=== PATIENT | female | born 1950 | race Caucasian/White ===

== ENCOUNTER → 2020-05-22 19:31 | Outpatient (ROUT) | payer MEDICARE, BC, SELFPAY ==
[2020-05-22 20:24] LABS: Aspartate Aminotransferase 29 IU/L (14-36); BUN Creatinine Ratio 48.1 (6-22); Blood Urea Nitrogen 25 mg/dL (7-17); Calcium 9.7 mg/dL (8.4-10.2); Carbon Dioxide 29 mmol/L (22-32); Chloride 105 mmol/L (98-107); Cholesterol 155 mg/dL (140-199); Estimated Glomerular Filt Rate > 60.0 mL/min (>60); Glucose 94 mg/dL (80-110); HDL Cholesterol 65 mg/dL (40-60); HEMOLYSIS < 15 (0-50); LDL Cholesterol Calculated 70 mg/dL (<100); Potassium 3.8 mmol/L (3.4-5.1); Sodium 137 mmol/L (137-145); Triglycerides 102 mg/dL (35-150)
== END ==
PROVIDERS: Visit Provider Internal Medicine
DX: I10 Essential (primary) hypertension (principal); E78.2 Mixed hyperlipidemia; E55.9 Vitamin D deficiency, unspecified
CPT/HCPCS: 80048; 80061; 82306; 84450

== ENCOUNTER → 2021-08-08 14:14 | Outpatient (CLI) | payer MEDICARE, BC, SELFPAY ==
--- NOTE | 2021-08-08 14:21 | DI.RAD.S_ITS ---
PROCEDURE: XR DEXA AXIAL SKELETON INDICATIONS: OSTEOPOROSIS COMPARISON: None. FINDINGS: This blank DEXA report has been sent in error by the PACS system. The correct and complete report will be forthcoming in 1-2 days. Thank you for your patience and understanding. Dictated by: Susan Ferrer MD, PhD on 08/08/2021 at 17:25 Approved by: Susan Ferrer MD, PhD on 08/08/2021 at 17:25
== END ==
PROVIDERS: PCP Internal Medicine; Referring Provider Internal Medicine; Visit Provider Internal Medicine
DX: M85.851 Other specified disorders of bone density and structure, right thigh (principal); Z78.0 Asymptomatic menopausal state; Z82.62 Family history of osteoporosis
CPT/HCPCS: 77080

== ENCOUNTER → 2021-12-07 14:56 | Outpatient (CLI) | payer MEDICARE, BC, SELFPAY ==
[2021-12-07 16:17] LABS: Hematocrit 38.9 % (36-46); Hemoglobin 13.1 g/dL (12.0-16.0); Mean Corpuscular HGB Conc 33.8 % (30-36); Mean Corpuscular Hemoglobin 31.4 PG (26-34); Platelet Count 245 X10^3/uL (150-400); Red Blood Cell Count 4.18 X10^6/uL (4.0-5.2); Red Cell Distribution Width 12.3 % (11.6-14.8); White Blood Cell Count 6.1 X10^3/uL (4.5-11.0)
[2021-12-07 17:23] LABS: Alanine Aminotransferase 22 IU/L (<35); Albumin 4.2 g/dL (3.5-5.0); Albumin Globulin Ratio 1.5 (1.0-2.8); Alkaline Phosphatase 44 U/L (38-126); Aspartate Aminotransferase 28 IU/L (14-36); BUN Creatinine Ratio 37.1 (6-22); Bilirubin Total 0.4 mg/dL (0.2-1.3); Blood Urea Nitrogen 23 mg/dL (7-17); Carbon Dioxide 26 mmol/L (22-32); Chloride 107 mmol/L (98-107); Cholesterol 144 mg/dL (140-199); Estimated Glomerular Filt Rate > 60 mL/min (>60); Globulin 2.8 g/dL (1.7-4.1); Glucose 96 mg/dL (80-110); HDL Cholesterol 49 mg/dL (40-60); HEMOLYSIS < 15 (0-50); LDL Cholesterol Calculated 59 mg/dL (<100); Potassium 4.1 mmol/L (3.4-5.1); Sodium 140 mmol/L (137-145); Triglycerides 180 mg/dL (35-150)
[2021-12-07 17:40] LABS: Vitamin D 25 Hydroxy (D3) 40.8 ng/mL (30.0-100.0)
[2021-12-07 17:54] LABS: TSH w/ Reflex to FT4 1.51 uIU/mL (0.47-4.68)
== END ==
PROVIDERS: PCP Internal Medicine; Referring Provider Internal Medicine; Visit Provider Internal Medicine
DX: I10 Essential (primary) hypertension (principal); E78.2 Mixed hyperlipidemia; M85.89 Other specified disorders of bone density and structure, multiple sites
CPT/HCPCS: 36415; 80053; 80061; 82306; 84443; 85027

== ENCOUNTER → 2022-05-02 09:21 | Outpatient (CLI) | payer MEDICARE, BC, SELFPAY ==
[2022-05-02 11:03] LABS: COVID19 -Nasal RAPID Negative (Negative)
== END ==
PROVIDERS: PCP Internal Medicine; Visit Provider Surgery
DX: Z20.822 Contact with and (suspected) exposure to COVID-19 (principal); Z01.812 Encounter for preprocedural laboratory examination
CPT/HCPCS: 87635; C9803

== ENCOUNTER 2022-05-03 06:29 | Day surgery (SDC) | payer MEDICARE, BC, SELFPAY ==
[2022-05-03 07:22] VITALS: BP 142/71; PULSE 59; RESP 16; TEMP 36.1; O2SAT 99; BMI 22.4
[2022-05-03] MEDS: LACTATED RINGERS 1,000 ML 42 ML IV (07:30)
--- NOTE | 2022-05-03 07:47 | PM.HP.1 ---
History of Present Illness History of Present Illness Chief complaint: SCREENING COLONOSCOPY Narrative: Ms. Ward presents today for screening colonoscopy she has had a colonoscopy 10 years ago and other than hemorrhoids there were no polyps seen and she was advised to follow up in 10 years. She has no family history of colon cancer. She endorses no major change in bowel habits. She has had some looser stools which she attributes to increasing her vegetable intake in her diet. And she often has some spots of blood on her toilet paper when she wipes but she has 3 known hemorrhoids that she has had for ever and always dealt with otherwise she has had no change from her normal and no symptoms which are alarming. Patient History Medical History Advanced directives, counseling/discussion Cat allergies Chicken pox Colon cancer screening Essential hypertension Hemorrhoid (~1986) Measles Mixed hyperlipidemia Mumps (~1963) Osteopenia (~2014) Wrist fracture (~2017) Surgical History Anesthesia History of tubal ligation (~05/1992) History of vaginal delivery Family & Social History Family History Father Sudden Mother Cancer Congestive heart failure Brother HIV (human immunodeficiency virus infection) Sister Glaucoma Osteoporosis Osteopenia Mental health problem Disease of spine Alcoholism Grandfather Cancer Grandmother Congestive heart failure Social History: household members spouse Tobacco & Substance use: Smoking Status Never smoker alcohol intake frequency a few times a week Substance Use Type marijuana Meds Home Medications and Allergies Home Medications Medication Instructions Recorded Confirmed Type alendronate 70 mg tablet 70 mg PO QWEEK #12 tabs 12/07/21 05/03/22 Rx amlodipine 2.5 mg tablet 2.5 mg PO DAILY #90 tabs 12/07/21 05/03/22 Rx atorvastatin 10 mg tablet 10 mg PO BEDTIME #90 tabs 12/07/21 05/03/22 Rx cholecalciferol (vitamin D3) 25 25 mcg PO DAILY 12/07/21 05/03/22 History mcg (1,000 unit) capsule Allergies Allergy/AdvReac Type Severity Reaction Status Date / Time cat dander Allergy Mild Sneezing Verified 05/03/22 07:15 Exam Vital Signs (past 8 hours): - 05/03/22 07:22 Temperature 97 F L Pulse Rate 59 L Respiratory Rate 16 Blood Pressure 142/71 H Pulse Oximetry 99 Oxygen Delivery Method Room Air Oxygen Flow Rate 0 Oxygen Delivery Method Room Air Oxygen Flow Rate 0 Const General: cooperative, healthy appearing and comfortable HENMT Head: normal to inspection Eyes General: appearance normal, both eyes and all related structures Neck Neck: normal visual inspection Resp Effort & Inspection: normal respiratory effort and able to speak in complete sentences Cardio Rate: regular rate Rhythm: regular rhythm GI Palpation: soft and No tender Extrem General: normal to inspection Assessment & Plan Assessment and plan (1) Colon cancer screening: Status: Acute Plan I discussed the risks benefits and alternatives to screening colonoscopy and procedural conscious sedation. Ms. Ward feels she has a full understanding and would like to proceed. She had no further questions. Time Spent With Patient Critical Care time: I spent a total of [] minutes of critical care time on this patient's care today; this time is exclusive of procedural time.
[2022-05-03] MEDS: fentaNYL 100 MCG/2 ML INJ 150 MCG IV (08:11)
[2022-05-03] MEDS: MIDAZOLAM 5 MG/5 ML VIAL IV (08:11)
--- NOTE | 2022-05-03 08:30 | PM.OP.COLON ---
Operative Date/Time/Diagnoses Date of procedure: 05/03/22 Time of procedure: 08:31 Pre-op diagnosis: Colon cancer screening Post-op diagnosis: same Procedure & Clinicians Same procedure as scheduled: Yes Indications: Screening Surgeon: Cynthia Naranjo Procedure Notes Procedure in detail: Patient was taken to the endoscopy suite placed in left lateral decubitus position 2 mg of Versed and 50mcg of fentanyl were administered initially. Patient was so wide awake at 2 minutes, and another 2mg versed and 50mcg of fentanyl were then given. Patient tolerated this well. The colonoscope was placed into the anal canal after performing a digital rectal exam and visual exam of the anus. External hemorrhoids were visualized. The scope was advanced to the cecum. At the hepatic flexure another 1 mg and of Versed and 50 mg of fentanyl were administered. And the scope was advanced into the cecum. Photograph was taken of the appendiceal orifice. The scope was then withdrawn. 13 minute withdrawl. No polyps were seen, no diverticula appreciated. Total: 5 mg versed, 150 mcg fentanyl. Sedation minutes: 32 Specimen(s): none sent Complications: none Post-procedure Recommendations: Colonoscopy in 10 years Plan for aftercare: Patient may follow-up in 10 years for colonoscopy, but she will be 81 so, only if she wishes to continue screening at that time.
[2022-05-03 08:38] VITALS: BP 101/42; PULSE 56; RESP 16; TEMP 36.3; O2SAT 98
[2022-05-03 08:43] VITALS: BP 101/42; PULSE 50; RESP 16; O2SAT 97
[2022-05-03 08:48] VITALS: BP 102/49; PULSE 52; RESP 16; TEMP 36.3; O2SAT 95
[2022-05-03 08:57] VITALS: BP 111/52; PULSE 57; RESP 16; TEMP 36.2; O2SAT 98
[2022-05-03 08:59] VITALS: BP 120/70; PULSE 51; RESP 16; TEMP 36.3; O2SAT 96
== END 2022-05-03 09:17 | disposition home or self-care (01) ==
PROVIDERS: PCP Internal Medicine; Referring Provider Surgery; Visit Provider Surgery
PROC: 0DJD8ZZ Inspection of Lower Intestinal Tract, Via Natural or Artificial Opening Endoscopic (ICD-10-PCS; CPT 45378; principal; 2022-05-03 07:45)
DX: Z12.11 Encounter for screening for malignant neoplasm of colon (principal); K64.4 Residual hemorrhoidal skin tags
CPT/HCPCS: G0121; 99152; 99153; J2250; J3010

== ENCOUNTER → 2022-09-12 14:01 | Outpatient (CLI) | payer MEDICARE, BC, SELFPAY ==
--- NOTE | 2022-09-12 14:03 | DI.MG.S_ITS ---
BILATERAL DIGITAL SCREENING MAMMOGRAM 3D/2D WITH CAD: 09/12/2022 CLINICAL: Routine screening. Family history of breast cancer. Comparison is made to exams dated: 08/08/2021 mammogram, 06/01/2020 mammogram, and 04/07/2019 mammogram - [facility]. There are scattered areas of fibroglandular density in both breasts (category b / 25%-50% glandular tissue). Current study was also evaluated with a Computer Aided Detection (CAD) system. No significant masses, calcifications, or other findings are seen in either breast. There has been no significant interval change. IMPRESSION: NEGATIVE There is no mammographic evidence of malignancy. A 1 year screening mammogram is recommended. Based on the Tyrer Cuzick model (a risk assessment model) the patient's lifetime risk is 9.8% and her 10 year risk is 7.4%. According to the ACR, ACS, and NCCN guidelines, an annual breast MRI exam along with mammogram is recommended if the patient's lifetime risk is 20% or greater. This exam was interpreted at Station ID: [id number]. NOTE: For mammograms, a report in lay terms will be sent to the patient. Approximately 15% of breast malignancies will not be visualized mammographically. In the management of a palpable breast mass, a negative mammogram must not discourage biopsy of a clinically suspicious lesion. Electronically Signed By: Juan David harely/roland:09/12/2022 16:05:51 letter sent: Normal Exam ACR BI-RADS Category 1: Negative [id number]
== END ==
PROVIDERS: PCP Internal Medicine; Referring Provider Internal Medicine; Visit Provider Internal Medicine
DX: Z12.31 Encounter for screening mammogram for malignant neoplasm of breast (principal); Z80.3 Family history of malignant neoplasm of breast
CPT/HCPCS: 77063; 77067

== ENCOUNTER → 2023-07-04 08:46 | Outpatient (CLI) | payer MEDICARE, BC, SELFPAY ==
[2023-07-04 10:34] LABS: Aspartate Aminotransferase 25 IU/L (14-36); BUN Creatinine Ratio 25.5 (6-22); Blood Urea Nitrogen 14 mg/dL (7-17); Calcium 9.6 mg/dL (8.4-10.2); Carbon Dioxide 29 mmol/L (22-32); Chloride 104 mmol/L (98-107); Cholesterol 159 mg/dL (140-199); Estimated Glomerular Filt Rate > 60 mL/min (>60); Glucose 96 mg/dL (80-110); HDL Cholesterol 53 mg/dL (40-60); HEMOLYSIS < 15 (0-50); LDL Cholesterol Calculated 81 mg/dL (<100); Potassium 4.1 mmol/L (3.4-5.1); Sodium 139 mmol/L (137-145); Triglycerides 123 mg/dL (35-150)
== END ==
PROVIDERS: PCP Internal Medicine; Referring Provider Internal Medicine; Visit Provider Internal Medicine
DX: E78.2 Mixed hyperlipidemia (principal); I10 Essential (primary) hypertension
CPT/HCPCS: 36415; 80048; 80061; 84450

== ENCOUNTER → 2023-08-18 12:49 | Outpatient (CLI) | payer MEDICARE, BC, SELFPAY ==
--- NOTE | 2023-08-18 12:54 | DI.RAD.S_ITS ---
PROCEDURE: XR LUMBAR SPINE 2-3V INDICATIONS: Lumbar back pain TECHNIQUE: 3 views of the lumbar spine were acquired. COMPARISON: None. FINDINGS: Bones: 5 [id number] vertebrae are present. There is 9 mm anterolisthesis of L4 on L5. Mild degenerative endplate changes are noted throughout lumbar spine.. Chronic appearing superior endplate anterior wedge compression deformity at T12 level is seen with up to 20% loss of T12 vertebral body height anteriorly. No suspicious bony lesions. Soft tissues: Overlying bowel gas pattern is normal. No suspicious soft tissue calcifications. IMPRESSION: Chronic appearing anterior wedge compression deformity at T12 level. [id number] degenerative disc disease throughout lumbar spine. 9 mm anterolisthesis of L4 on L5. No other compression fracture or significant spondylolisthesis. Dictated by: Dustin Carter M.D. on 08/18/2023 at 15:25 Approved by: Dustin Carter M.D. on 08/18/2023 at 15:33
== END ==
PROVIDERS: PCP Internal Medicine; Referring Provider Registered Nurse; Visit Provider Registered Nurse
DX: M43.8X4 Other specified deforming dorsopathies, thoracic region (principal); M51.36 Other intervertebral disc degeneration, lumbar region; M43.16 Spondylolisthesis, lumbar region; M54.50 Low back pain, unspecified
CPT/HCPCS: 72100

== ENCOUNTER → 2023-09-17 13:10 | Outpatient (CLI) | payer MEDICARE, BC, SELFPAY ==
--- NOTE | 2023-09-17 13:11 | DI.MG.S_ITS ---
BILATERAL DIGITAL SCREENING MAMMOGRAM 3D/2D WITH CAD: 09/17/2023 CLINICAL: Routine screening. Family history of breast cancer. Comparison is made to exams dated: 09/12/2022 mammogram - [facility], 08/08/2021 mammogram, and 06/01/2020 mammogram - [facility]. There are scattered areas of fibroglandular density in both breasts (category b / 25%-50% glandular tissue). Current study was also evaluated with a Computer Aided Detection (CAD) system. No significant masses, calcifications, or other findings are seen in either breast. There has been no significant interval change. IMPRESSION: NEGATIVE There is no mammographic evidence of malignancy. A 1 year screening mammogram is recommended. Based on the Tyrer Cuzick model (a risk assessment model) the patient's lifetime risk is 9.3% and her 10 year risk is 7.6%. According to the ACR, ACS, and NCCN guidelines, an annual breast MRI exam along with mammogram is recommended if the patient's lifetime risk is 20% or greater. This exam was interpreted at Station ID: [id number]. NOTE: For mammograms, a report in lay terms will be sent to the patient. Approximately 15% of breast malignancies will not be visualized mammographically. In the management of a palpable breast mass, a negative mammogram must not discourage biopsy of a clinically suspicious lesion. Electronically Signed By: Yahaira phillip/roland:09/17/2023 14:34:32 letter sent: Normal Exam ACR BI-RADS Category 1: Negative 3341F
== END ==
LOC: MAMMO 13:11
PROVIDERS: PCP Internal Medicine; Referring Provider Internal Medicine; Visit Provider Internal Medicine
DX: Z12.31 Encounter for screening mammogram for malignant neoplasm of breast (principal); Z80.3 Family history of malignant neoplasm of breast; R92.323 Mammographic fibroglandular density, bilateral breasts
CPT/HCPCS: 77063; 77067

== ENCOUNTER → 2024-07-05 08:35 | Outpatient (CLI) | payer MEDICARE, BC, SELFPAY ==
[2024-07-05 10:23] LABS: Aspartate Aminotransferase 29 IU/L (14-36); BUN Creatinine Ratio 20.6 (6-22); Blood Urea Nitrogen 13 mg/dL (7-17); Calcium 9.6 mg/dL (8.4-10.2); Carbon Dioxide 29 mmol/L (22-32); Chloride 104 mmol/L (98-107); Cholesterol 178 mg/dL (140-199); Estimated Glomerular Filt Rate > 60 mL/min (>60); Glucose 96 mg/dL (80-110); HDL Cholesterol 56 mg/dL (40-60); HEMOLYSIS < 15 (0-50); LDL Cholesterol Calculated 98 mg/dL (<100); Potassium 4.1 mmol/L (3.4-5.1); Sodium 137 mmol/L (137-145); Triglycerides 122 mg/dL (35-150)
== END ==
PROVIDERS: PCP Internal Medicine; Referring Provider Internal Medicine; Visit Provider Internal Medicine
DX: E78.2 Mixed hyperlipidemia (principal); I10 Essential (primary) hypertension
CPT/HCPCS: 36415; 80048; 80061; 84450

== ENCOUNTER → 2024-09-22 15:02 | Outpatient (CLI) | payer MEDICARE, BC, SELFPAY ==
--- NOTE | 2024-09-22 15:05 | DI.MG.S_ITS ---
BILATERAL DIGITAL SCREENING MAMMOGRAM 3D/2D WITH CAD: 09/22/2024 CLINICAL: Routine screening. Family history of breast cancer. Comparison is made to exams dated: 09/17/2023 mammogram, 09/12/2022 mammogram - [facility], and 08/08/2021 mammogram - [facility]. There are scattered areas of fibroglandular density (category b / 25%-50% glandular tissue). Current study was also evaluated with a Computer Aided Detection (CAD) system. No significant masses, calcifications, or other findings are seen in either breast. There has been no significant interval change. IMPRESSION: NEGATIVE There is no mammographic evidence of malignancy. A 1 year screening mammogram is recommended. Based on the Tyrer Cuzick model (a risk assessment model) the patient's lifetime risk is 8.7% and her 10 year risk is 7.8%. According to the ACR, ACS, and NCCN guidelines, an annual breast MRI exam along with mammogram is recommended if the patient's lifetime risk is 20% or greater. This exam was interpreted at Station ID: [id number]. NOTE: For mammograms, a report in lay terms will be sent to the patient. Approximately 15% of breast malignancies will not be visualized mammographically. In the management of a palpable breast mass, a negative mammogram must not discourage biopsy of a clinically suspicious lesion. Electronically Signed By: Fili pena/roland:09/23/2024 12:21:24 letter sent: Normal Exam ACR BI-RADS Category 1: Negative
== END ==
PROVIDERS: PCP Internal Medicine; Referring Provider Internal Medicine; Visit Provider Internal Medicine
DX: Z12.31 Encounter for screening mammogram for malignant neoplasm of breast (principal); Z80.3 Family history of malignant neoplasm of breast
CPT/HCPCS: 77063; 77067

== ENCOUNTER → 2025-07-06 08:35 | Outpatient (CLI) | payer MEDICARE, BC, SELFPAY ==
[2025-07-06 09:11] LABS: Hemoglobin A1C% w Est Avg Glu 5.4 % (4.0-6.0)
[2025-07-06 09:18] LABS: Blood Urea Nitrogen 14 mg/dL (7-17); Calcium 9.2 mg/dL (8.4-10.2); Carbon Dioxide 27 mmol/L (22-32); Chloride 106 mmol/L (98-107); Cholesterol 169 mg/dL (140-199); Estimated Glomerular Filt Rate > 60 mL/min (>60); Glucose 96 mg/dL (70-99); HDL Cholesterol 61 mg/dL (40-60); HEMOLYSIS 29 (0-50); Potassium 4.2 mmol/L (3.4-5.1); Sodium 140 mmol/L (137-145); Triglycerides 136 mg/dL (35-150)
== END ==
PROVIDERS: PCP Internal Medicine; Referring Provider Internal Medicine; Visit Provider Internal Medicine
DX: R73.01 Impaired fasting glucose (principal); I10 Essential (primary) hypertension; E78.2 Mixed hyperlipidemia
CPT/HCPCS: 36415; 80048; 80061; 83036; 84450

== ENCOUNTER → 2025-07-15 10:12 | Outpatient (CLI) | payer MEDICARE, BC, SELFPAY ==
--- NOTE | 2025-07-15 10:14 | DI.RAD.S_ITS ---
PROCEDURE: XR DEXA AXIAL SKELETON INDICATIONS: osteopenia COMPARISON: [facility], , XR DEXA AXIAL SKELETON, 08/08/2021, 14:49. FINDINGS: Lumbar Spine: Bone mineral density 0.8 g/cm2, T score -2, previously -1.5 (however different levels were used). Left Femoral Neck: Bone mineral density 0.62 g/cm2, T score -2, previously -2.1. Left Hip: Bone mineral density 0.72 g/cm2, T score -1.8, similar to prior. Fracture Risk Calculation (when applicable): 10-year fracture risk of a major osteoporotic fracture 13 percent and of a hip fracture 3.4 percent. (T score greater or equal to -1.0 to: NORMAL) (T score from -1.1 to -2.4: OSTEOPENIA) (T score less than or equal to -2.5: OSTEOPOROSIS) IMPRESSION: Osteopenia with elevated fracture risk calculated above Follow-up guidelines as follows: Osteoporosis: Consider a repeat DEXA and Vertebral Fracture Assessment (VFA) exam in 2 years or sooner if medically necessary, to reassess this patient's status. Osteopenia: Consider a repeat DEXA in 2-3 years to reassess this patient's status, or if there is a new clinical indication. Normal: Consider a repeat DEXA in 5 years or sooner, or if there is a new clinical indication. All treatment decisions require clinical judgment and consideration of individual patient factors, including patient preferences, comorbidities, previous drug use, risk factors not captured in the FRAX model (e.g., frailty, falls, vitamin D deficiency, increased bone turnover, interval significant decline in bone density ) and possible under- or over-estimation of fracture risk by FRAX. In addition, the NOF Guide recommends that FDA-approved medical therapies be considered in postmenopausal women and men age >= 50 years with a: * Hip or vertebral (clinical or morphometric) fracture * T-score of <=-2.5 at the spine or hip * Ten-year fracture probability by FRAX of >= 3% for hip fracture or >=20% for major osteoporotic fracture. Dictated by: Miguel A Joe M.D. on 07/17/2025 at 21:48 Approved by: Miguel A Joe M.D. on 07/17/2025 at 21:49
== END ==
LOC: RAD 10:13
PROVIDERS: PCP Internal Medicine; Referring Provider Internal Medicine; Visit Provider Internal Medicine
DX: M85.89 Other specified disorders of bone density and structure, multiple sites (principal)
CPT/HCPCS: 77080